=== PATIENT | male | born 1985 ===

== ENCOUNTER 2017-11-04 08:19 | Observation (INO) | payer OTHER ==
[2017-11-04] MEDS ORDERED: Sodium Chloride 0.9% 1,000 ML IV ONE ×2 (09:08→12:25)
--- NOTE | 2017-11-04 09:23 | C.PDOC ---
History Of Present Illness 32 yo male w/o significant PMHx come in for evaluation of epigastric pain developed since last nigh associated with nausea, multiple episodes of watery diarrhea #8 since alst night. Pt admits, " had some fish last night". Otherwise , pt denies fever, recent illness or abx use, sore throat, CP, SOB, dyspnea, diaphoresis, palpitation, vomiting, hematemesis, melena, melena, back pain, UTI sx. Ambulate to ED for evaluation, not in any apparent distress. Time Seen by Provider: 11/04/17 08:36 Chief Complaint (Nursing): Abdominal Pain History Per: Patient Past Medical History Reviewed: Historical Data, Nursing Documentation, Vital Signs Vital Signs: Last Vital Signs Temp 99.5 F 11/04/17 13:36 Pulse 114 H 11/04/17 13:36 Resp 18 11/04/17 13:36 BP 97/51 L 11/04/17 13:36 Pulse Ox 99 11/04/17 14:30 - Medical History PMH: No Chronic Diseases Surgical History: No Surg Hx Family History: States: No Known Family Hx - Social History Hx Tobacco Use: No Hx Alcohol Use: Yes Hx Substance Use: No Review Of Systems Except As Marked, All Systems Reviewed And Found Negative. Constitutional: Negative for: Fever, Chills Eyes: Negative for: Vision Change ENT: Negative for: Ear Discharge, Nose Discharge, Throat Pain, Throat Swelling Cardiovascular: Negative for: Chest Pain, Palpitations, Edema, Light Headedness Respiratory: Negative for: Cough, Shortness of Breath, Wheezing Gastrointestinal: Positive for: Nausea, Abdominal Pain, Diarrhea. Negative for : Vomiting, Melena, Hematochezia, Hematemesis Genitourinary: Negative for: Dysuria, Frequency Musculoskeletal: Negative for: Neck Pain, Back Pain Skin: Negative for: Rash Neurological: Negative for: Weakness, Numbness, Altered Mental Status, Headache , Dizziness Physical Exam - Physical Exam Appears: Well, Non-toxic, Other (in pain) Skin: Normal Color, Warm, Dry, No Rash Eye(s): bilateral: PERRL Nose: Normal Throat: Normal Neck: Normal Cardiovascular: Rhythm Regular Respiratory: Normal Breath Sounds Gastrointestinal/Abdominal: Normal Exam Back: Normal Inspection Extremity: Normal ROM ED Course And Treatment - Laboratory Results Result Diagrams: 11/04/17 09:39 11/04/17 09:39 Lab Interpretation: Abnormal ECG: Interpreted By Me, Viewed By Me ECG Rhythm: Sinus Rhythm O2 Sat by Pulse Oximetry: 99 Pulse Ox Interpretation: Normal - Radiology CXR: Interpreted by Me, Viewed By Me CXR Interpretation: Yes: No Acute Disease - CT Scan/US CT abd/pelvis Other Rad Studies (CT/US): Radiology Report Reviewed CT/US Interpretation: Imaging Account Manager : Aiden Flynn MD. Approver2 : Report Date : 11/04/2017 13:48:48. My Comment : . PROCEDURE: CT at pelvis dated 09/29/2017. HISTORY: Fever, LLQ pain. COMPARISON: No prior study available comparison. TECHNIQUE: Contiguous axial images of the abdomen and pelvis performed following intravenous injection of approximately 100 cc Visipaque 320 contrast material. Additional 2D sagittal and coronal reformats generated. Radiation dose: Total exam DLP = 545.66 mGy-cm. This CT exam was performed using one or more of the following dose reduction techniques: Automated exposure control, adjustment of the mA and/or kV according to patient size, and/ or use of iterative reconstruction technique. . FINDINGS: LOWER THORAX: Minor passive/ dependent type atelectasis both posterior lower lung zones. Lung lopez are otherwise clear. No effusion or basilar pneumothorax. Heart size within range of normal. No significant pericardial. There is a tiny hiatal hernia. LIVER: Liver is of mildly enlarged measuring nearly 20 cm CC dimension. Mild diffuse fatty hepatic infiltration. No obvious hepatic mass collection or calcification. Portal and splenic veins are opacified. GALLBLADDER AND BILE DUCTS: Gallbladder physiologically distended. No evidence of intraluminal gallbladder calculi. PANCREAS: Unremarkable. No mass. No ductal dilatation. SPLEEN: Unremarkable. No splenomegaly. ADRENALS: No adrenal lesions. KIDNEYS AND URETERS: Kidneys demonstrate relatively symmetric nephrograms. No evidence of nephrolithiasis or hydronephrosis. BLADDER: Urinary bladder is incompletely distended which presumably in part accounts thick-walled appearance. Muscular hypertrophy may. REPRODUCTIVE: Unremarkable. APPENDIX: Normal appearing appendix best seen on coronal image number [id number]. BOWEL: Evaluation of bowel is limited due to the lack of oral contrast. Stomach is incompletely distended which part accounts thick-walled appearance. Rule out gastritis. There are multiple distended fluid-filled loops of small bowel in the right mid and lower abdomen that exhibit mild enhancing wall thickening. Findings consistent with enteritis. In addition, there also appears be enhancing wall thickening of the cecum ascending colon as well as portions of the transverse descending colon consistent with a colitis which contains fluid as well. . Rule out diarrheal illness and/or inflammatory / infectious bowel disease. No evidence acute mechanical bowel obstruction. PERITONEUM: Unremarkable. No free or loculated fluid collection. No free air. LYMPH NODES: Multiple small nonspecific mesenteric lymph nodes are present possibly reactive however mesenteric adenitis not excluded. VASCULATURE: Unremarkable. No aortic aneurysm. BONES: No fracture or destructive lesion. OTHER FINDINGS: None. IMPRESSION: Findings most likely represent a nonspecific coloenteritis. Rule out diarrheal illness or inflammatory - infectious bowel disease. Multiple small nonspecific mesenteric lymph nodes possibly reactive however rule out mesenteric adenitis. Normal appendix. Mild hepatomegaly and mild fatty hepatic infiltration. Progress Note: On re-evaluation, pt still c/o diffuse abdominal cramping. noticed pt developed fever while in ED, tachycardic. CC 30 minutes. on re- eval at 13:50, fever impropved, remained tachy. PulseOx 99% rA. Neck: SUpple, (-) meningeal sign. ENT: no acute findings. Lungs: CTA B/L, BS equal B/L. CVS: (+)S1S2, reg. Abd: benign, (-) guarding, (-) rebound, (-) RLQ tenderness. Neurologicaly intact. Blood work review (+) abnormal, leukocytosis, bandemia. UA results review and appears normal. CT abd/pelvis review (+) acute enteritis. case discussed with Hospitalist and admission arranged for OBS. Results review and discussed with pt, admission recommend, pt agrees. Critical Care Time - Critical Care Note Total Time (in mins): 30 Documented critical care: time excludes all time spent performing seperately billable procedures. Disposition - Disposition Disposition: HOSPITALIZED Disposition Time: 14:30 Condition: STABLE Forms: [employer] (Armenian) - Clinical Impression Clinical Impression: Diarrhea, Abdominal pain, Fever, Enteritis
[2017-11-04] MEDS ORDERED: Sodium Chloride 0.9% 1,000 ML ONE (09:28)
[2017-11-04 09:44] LABS: BASO # 0.1 K/uL (0.0-0.2); BASO % 0.4 % (0.0-2.0); HEMOGLOBIN 15.5 g/dL (12.0-18.0); LYMPH % 6.1 % (20.0-40.0); MEAN CELL VOLUME 87.2 fL (80.0-94.0); MEAN CORPUSCULAR HEMOGLOBIN 29.8 pg (27.0-31.0); MEAN CORPUSCULAR HGB CONC 34.2 g/dL (33.0-37.0); MEAN PLATELET VOLUME 7.7 fL (7.2-11.7); MONO # 0.9 K/uL (0.0-0.8); MONO % 5.7 % (0.0-10.0); NEUT # 14.2 K/uL (1.8-7.0); NEUT % 87.8 % (50.0-75.0); NRBC % 0.1 % (0.0-2.0); PLATELET COUNT 238 K/uL (130-400); RBC 5.22 Mil/uL (4.40-5.90); RED CELL DISTRIBUTION WIDTH 14.2 % (11.5-14.5); WHITE BLOOD COUNT 16.2 K/uL (4.8-10.8)
[2017-11-04 09:48] LABS: URINE BILIRUBIN 1+ (NEGATIVE); URINE CLARITY Hazy (Clear); URINE COLOR DARK YELLOW (YELLOW); URINE GLUCOSE (UA) NEGATIVE (Normal)
[2017-11-04 09:50] LABS: PH,URINE 5.5 (5.0-8.0); URINE BLOOD 2+ (NEGATIVE); URINE PROTEIN 2+ mg/dL (NEGATIVE); URINE UROBILINOGEN NORMAL mg/dL (0.2-1.0)
[2017-11-04 09:51] LABS: URINE LEUKOCYTE ESTERASE NEGATIVE Leu/uL (Negative)
[2017-11-04 09:58] LABS: SQUAMOUS EPITHIAL 1 /hpf (0-5)
[2017-11-04 10:01] LABS: ALB/GLOB RATIO 1.1 (1.0-2.1); ALBUMIN 4.8 g/dL (3.5-5.0); ALT/SGPT 54 U/L (21-72); AST/SGOT 32 U/L (17-59); BLOOD UREA NITROGEN 17 mg/dL (9-20); CALCIUM 8.7 mg/dl (8.6-10.4); GFR AFRICAN-AMERICAN > 60; GFR NON-AFRICAN AMERICAN > 60; LIPASE 25 U/L (23-300)
[2017-11-04 10:58] LABS: LYMPHOCYTE 5 % (20-40); MONOCYTE 10 % (0-10); NEUTROPHIL 70 % (50-75); TOTAL CELLS COUNTED 100
[2017-11-04 11:00] LABS: PLATELET ESTIMATE NORMAL (NORMAL)
[2017-11-04] MEDS ORDERED: Piperacillin/Tazobact 3.375 gm 100 ML IV STA (12:04)
[2017-11-04] MEDS ORDERED: Piperacillin/Tazobact 3.375 gm 100 ML IVPB ONE (12:37)
[2017-11-04] MEDS ORDERED: Iodixanol 320 MG/ML 100 ML BOTTLE IV ONE (12:54)
[2017-11-04 13:01] LABS: VENOUS BLOOD GAS BASE EXCESS -4.5 mmol/L (0.0-2.0); VENOUS BLOOD GAS PCO2 30 mmHg (40-60); VENOUS BLOOD GAS PO2 65 mm/Hg (30-55); VENOUS BLOOD PH 7.41 (7.32-7.43)
[2017-11-04 13:24] LABS: BARBITURATES, UR NEGATIVE (NEGATIVE); BENZODIAZEPINES, UR NEGATIVE (NEGATIVE); OPIATES, UR NEGATIVE (NEGATIVE); PHENCYCLIDINE, UR NEGATIVE (NEGATIVE)
--- NOTE | 2017-11-04 13:50 | RAD ---
Chest x-ray two views History: Cough. Comparison: None available. Findings No focal infiltrate or effusion. Heart size within normal limits. Impression: No focal infiltrate or effusion.
--- NOTE | 2017-11-04 14:26 | CT ---
PROCEDURE: CT at pelvis dated 09/29/2017 HISTORY: Fever, LLQ pain COMPARISON: No prior study available comparison TECHNIQUE: Contiguous axial images of the abdomen and pelvis performed following intravenous injection of approximately 100 cc Visipaque 320 contrast material. Additional 2D sagittal and coronal reformats generated. Radiation dose: Total exam DLP = 545.66 mGy-cm. This CT exam was performed using one or more of the following dose reduction techniques: Automated exposure control, adjustment of the mA and/or kV according to patient size, and/or use of iterative reconstruction technique. . FINDINGS: LOWER THORAX: Minor passive/ dependent type atelectasis both posterior lower lung zones. Lung lopez are otherwise clear. No effusion or basilar pneumothorax. Heart size within range of normal. No significant pericardial. There is a tiny hiatal hernia. LIVER: Liver is of mildly enlarged measuring nearly 20 cm CC dimension. Mild diffuse fatty hepatic infiltration. No obvious hepatic mass collection or calcification. Portal and splenic veins are opacified. GALLBLADDER AND BILE DUCTS: Gallbladder physiologically distended. No evidence of intraluminal gallbladder calculi. PANCREAS: Unremarkable. No mass. No ductal dilatation. SPLEEN: Unremarkable. No splenomegaly. ADRENALS: No adrenal lesions KIDNEYS AND URETERS: Kidneys demonstrate relatively symmetric nephrograms. No evidence of nephrolithiasis or hydronephrosis. BLADDER: Urinary bladder is incompletely distended which presumably in part accounts thick-walled appearance. Muscular hypertrophy may. REPRODUCTIVE: Unremarkable. APPENDIX: Normal appearing appendix best seen on coronal image number [id number]. BOWEL: Evaluation of bowel is limited due to the lack of oral contrast. Stomach is incompletely distended which part accounts thick-walled appearance. Rule out gastritis. There are multiple distended fluid-filled loops of small bowel in the right mid and lower abdomen that exhibit mild enhancing wall thickening. Findings consistent with enteritis. In addition, there also appears be enhancing wall thickening of the cecum ascending colon as well as portions of the transverse descending colon consistent with a colitis which contains fluid as well. . Rule out diarrheal illness and/or inflammatory / infectious bowel disease. No evidence acute mechanical bowel obstruction. PERITONEUM: Unremarkable. No free or loculated fluid collection. No free air. LYMPH NODES: Multiple small nonspecific mesenteric lymph nodes are present possibly reactive however mesenteric adenitis not excluded. VASCULATURE: Unremarkable. No aortic aneurysm. BONES: No fracture or destructive lesion. OTHER FINDINGS: None. IMPRESSION: Findings most likely represent a nonspecific coloenteritis. Rule out diarrheal illness or inflammatory - infectious bowel disease. Multiple small nonspecific mesenteric lymph nodes possibly reactive however rule out mesenteric adenitis. Normal appendix. Mild hepatomegaly and mild fatty hepatic infiltration.
[2017-11-04 15:20] LABS: BANDS 15 % (0-2)
--- NOTE | 2017-11-04 15:44 | CP.PCM.HP ---
History of Present Illness - History of Present Illness History of Present Illness: CC: nausea, vomiting, and diarrhea HPI: Patient is a 32 year old male with no past medical history, who presents to the ED with complaints of nausea, vomiting, and diarrhea since yesterday at 5pm. He had fish for lunch, and shortly after that, he started to vomit and diarrhea. He reports his diarrhea and vomit is watery, non-bloody and constant. He also admits to having a fever, 100.3-100.4F. He tried taking cheryl seltzer but had no relief. Patient states that others who ate the fish have no symptoms. Patient denies recent antibiotic use and denies hospitalizations. Patient denies chest pain, abdominal pain, headaches, dizziness, leg pain/ swelling, and dysuria. PMD: Dr. Amezquita PMHx: denies SurgHx: denies FamHx: "DM runs in the family", otherwise denies SocHx: denies tobacco and drug use; admits to social drinking Allergies: NKDA Medication: none Present on Admission - Present on Admission Any Indicators Present on Admission: No Review of Systems - Constitutional Constitutional: Chills, Fever. absent: Headache, Weakness - EENT Ears: absent: Dizziness - Cardiovascular Cardiovascular: absent: Chest Pain, Dyspnea, Leg Edema, Palpitations - Respiratory Respiratory: absent: Cough, Dyspnea - Gastrointestinal Gastrointestinal: Diarrhea, Nausea, Vomiting. absent: Abdominal Pain, Constipation, Hematemesis, Hematochezia, Melena - Genitourinary Genitourinary: absent: Dysuria - Integumentary Integumentary: absent: Rash - Neurological Neurological: absent: Dizziness, Headaches Past Patient History - Past Social History Smoking Status: Never Smoked - PSYCHIATRIC Hx Substance Use: No - SURGICAL HISTORY Hx Surgeries: No Meds Allergies/Adverse Reactions: Allergies Allergy/AdvReac Type Severity Reaction Status Date / Time No Known Allergies Allergy Verified 11/04/ 08:25 Physical Exam - Constitutional Appears: No Acute Distress - Head Exam Head Exam: ATRAUMATIC, NORMAL INSPECTION - Eye Exam Eye Exam: EOMI, Normal appearance, PERRL - ENT Exam ENT Exam: Mucous Membranes Dry - Neck Exam Neck exam: Positive for: Normal Inspection - Respiratory Exam Respiratory Exam: Clear to Auscultation Bilateral, NORMAL BREATHING PATTERN. absent: Rales, Rhonchi, Wheezes, Respiratory Distress - Cardiovascular Exam Cardiovascular Exam: Tachycardia, REGULAR RHYTHM, +S1, +S2 - GI/Abdominal Exam GI & Abdominal Exam: Normal Bowel Sounds, Soft. absent: Distended, Firm, Guarding, Mass, Tenderness - Extremities Exam Extremities exam: Positive for: normal inspection, pedal pulses present. Negative for: pedal edema, tenderness - Neurological Exam Neurological exam: Alert, Oriented x3 - Psychiatric Exam Psychiatric exam: Normal Affect, Normal Mood - Skin Skin Exam: Dry, Intact, Normal Color, Warm Results - Vital Signs Recent Vital Signs: Last Vital Signs Temp 99.5 F 11/04/17 13:36 Pulse 114 H 11/04/17 13:36 Resp 18 11/04/17 13:36 BP 97/51 L 11/04/17 13:36 Pulse Ox 99 11/04/17 14:58 - Labs Result Diagrams: 11/04/17 09:39 11/04/17 09:39 Labs: Laboratory Results - last 24 hr 11/04/17 11/04/17 11/04/17 09:39 09:39 09:39 WBC 16.2 H RBC 5.22 Hgb 15.5 Hct 45.5 MCV 87.2 MCH 29.8 MCHC 34.2 RDW 14.2 Plt Count 238 MPV 7.7 Neut % (Auto) 87.8 H Lymph % (Auto) 6.1 L [place] % (Auto) 5.7 Eos % (Auto) 0.0 Baso % (Auto) 0.4 Neut # (Auto) 14.2 H Lymph # (Auto) 1.0 [place] # (Auto) 0.9 H Eos # (Auto) 0.0 Baso # (Auto) 0.1 Neutrophils % (Manual) 70 Band Neutrophils % 15 H* Lymphocytes % (Manual) 5 L Monocytes % (Manual) 10 Platelet Estimate Normal RBC Morphology Normal pO2 VBG pH VBG pCO2 VBG HCO3 VBG Total CO2 VBG O2 Sat (Calc) VBG Base Excess VBG Potassium Glucose Lactate Sodium 138 Potassium 3.7 Chloride 99 Carbon Dioxide 21 L Anion Gap 22 H BUN 17 Creatinine 0.8 Est GFR ( Amer) > 60 Est GFR (Non-Af Amer) > 60 Random Glucose 136 H Calcium 8.7 Total Bilirubin 1.5 H AST 32 ALT 54 Alkaline Phosphatase 126 Total Protein 9.0 H Albumin 4.8 Globulin 4.2 H Albumin/Globulin Ratio 1.1 Lipase 25 Venous Blood Potassium Urine Color Dark yellow Urine Clarity Hazy Urine pH 5.5 Ur Specific [place] > 1.030 H Urine Protein 2+ H Urine Glucose (UA) Negative Urine Ketones Negative Urine Blood 2+ H Urine Nitrate Negative Urine Bilirubin 1+ H Urine Urobilinogen Normal Ur Leukocyte Esterase Negative Urine WBC (Auto) 1 Urine RBC (Auto) 16 H Ur Squamous Epith Cells 1 Urine Opiates Screen Urine Methadone Screen Ur Barbiturates Screen Ur Phencyclidine Scrn Ur Amphetamines Screen U Benzodiazepines Scrn U Oth Cocaine Metabols U Cannabinoids Screen 11/04/17 11/04/17 12:50 12:56 WBC RBC Hgb Hct MCV MCH MCHC RDW Plt Count MPV Neut % (Auto) Lymph % (Auto) [place] % (Auto) Eos % (Auto) Baso % (Auto) Neut # (Auto) Lymph # (Auto) [place] # (Auto) Eos # (Auto) Baso # (Auto) Neutrophils % (Manual) Band Neutrophils % Lymphocytes % (Manual) Monocytes % (Manual) Platelet Estimate RBC Morphology pO2 65 H VBG pH 7.41 VBG pCO2 30 L VBG HCO3 21.3 VBG Total CO2 19.9 L VBG O2 Sat (Calc) 93.8 H VBG Base Excess -4.5 L VBG Potassium 3.7 Glucose 104 Lactate 1.7 Sodium 134.0 Potassium Chloride 106.0 Carbon Dioxide Anion Gap BUN Creatinine Est GFR ( Amer) Est GFR (Non-Af Amer) Random Glucose Calcium Total Bilirubin AST ALT Alkaline Phosphatase Total Protein Albumin Globulin Albumin/Globulin Ratio Lipase Venous Blood Potassium 3.7 Urine Color Urine Clarity Urine pH Ur Specific [place] Urine Protein Urine Glucose (UA) Urine Ketones Urine Blood Urine Nitrate Urine Bilirubin Urine Urobilinogen Ur Leukocyte Esterase Urine WBC (Auto) Urine RBC (Auto) Ur Squamous Epith Cells Urine Opiates Screen Negative Urine Methadone Screen Negative Ur Barbiturates Screen Negative Ur Phencyclidine Scrn Negative Ur Amphetamines Screen Negative U Benzodiazepines Scrn Negative U Oth Cocaine Metabols Negative U Cannabinoids Screen Negative Assessment & Plan (1) Sepsis Assessment and Plan: Febrile + Leukocytosis + Tachycardia; Source: enteritis Bandemia EKG: [id number]@118bpm CXR: negative Lactate: 1.7 Lactate #2: Blood cx: f/u Stool cx: f/u Urine cx: f/u Continue to monitor AM labs and vitals Medication/Management: * Cipro 400mg IV Q12 * Flagyl 500mg IV Q8 * LR@100mls/hr * Tylenol 650mg PO Q6 prn for fever Status: Acute (2) Enterocolitis Assessment and Plan: [place] illness vs viral etiology Abdo/pelv CT: coloenteritis; multiple small nonspecific mesenteric lymph nodes, possibly reactive; mild hepatomegaly; mild fatty hepatic infiltrate Blood cx: f/u Stool cx: f/u Urine cx: f/u Osmolality feces: f/u Ova & Parasite: f/u Fecal leukocytes: f/u Stool occult: f/u C.Diff: f/u Continue to monitor AM labs and vitals Medication/Management: * Cipro 400mg IV Q12 * Flagyl 500mg IV Q8 * LR@100mls/hr * Tylenol 650mg PO Q6 prn for fever * Zofran 4mg IV Q6 prn for n/v * NPO except medications * May advance diet to CLD if patient can tolerate/stops vomiting/requests to eat. Status: Acute (3) Prophylactic measure Assessment and Plan: DVT: SCDs; chemical anticoagulation not indicated GI: no indicated Status: Acute
[2017-11-04] MEDS: Lactated Ringer's 1,000 ML IV SCH (16:58)
[2017-11-04 17:44] VITALS: RESP 20
[2017-11-04] MEDS: Ciprofloxacin 400mg/200ml D5W 400 MG/200 ML BAG IVPB SCH (18:30)
[2017-11-04] MEDS: metroNIDAZOLE IV 500 mg/100 ml 500 MG/100 ML BAG IVPB SCH (20:50)
[2017-11-05] MEDS: Lactated Ringer's 1,000 ML IV SCH ×3 (01:15→20:33)
[2017-11-05] MEDS: metroNIDAZOLE IV 500 mg/100 ml 500 MG/100 ML BAG IVPB SCH ×3 (05:02→20:27)
[2017-11-05] MEDS: Ciprofloxacin 400mg/200ml D5W 400 MG/200 ML BAG IVPB SCH ×2 (06:05→17:30)
--- NOTE | 2017-11-05 07:46 | CP.PCM.PN ---
<Helena Reyes V - Last Filed: 11/05/17 17:26> Objective - Vital Signs/Intake and Output Vital Signs (last 24 hours): Temp Pulse Resp BP Pulse Ox 98.2 F 85 20 96/57 L 96 11/05/17 07:04 11/05/17 07:04 11/05/17 07:04 11/05/17 07:04 11/05/17 07:04 Intake and Output: 11/05/17 11/05/17 06:59 18:59 Intake Total 1600 Balance 1600 - Medications Medications: Current Medications Acetaminophen (Tylenol 325mg Tab) 650 mg PO Q6 PRN PRN Reason: Fever >100.4 F Last Admin: 11/05/17 05:05 Dose: 650 mg Lactated Ringer's (Lactated Ringer's) 1,000 mls @ 100 mls/hr IV .Q10H [facility]NESTO Last Admin: 11/05/17 10:44 Dose: 100 mls/hr Ciprofloxacin (Cipro 400mg/200ml Dsw) 400 mg in 200 mls @ 133 mls/hr IVPB Q12H HERNESTO PRN Reason: Protocol Last Admin: 11/05/17 06:05 Dose: 133 mls/hr Metronidazole (Flagyl) 500 mg in 100 mls @ 100 mls/hr IVPB Q8H HERNESTO PRN Reason: Protocol Last Admin: 11/05/17 13:57 Dose: 100 mls/hr Ondansetron HCl (Zofran Inj) 4 mg IVP Q6 PRN PRN Reason: Nausea/Vomiting Last Admin: 11/04/17 20:49 Dose: 4 mg Pneumococcal Polyvalent Vaccine (Pneumovax 23 Vaccine) 0.5 ml IM .ONCE ONE Stop: 11/07/17 10:01 - Labs Labs: 11/05/17 07:31 11/05/17 07:31 Attending/Attestation - Attestation I have personally seen and examined this patient.: Yes I have fully participated in the care of the patient.: Yes I have reviewed all pertinent clinical information, including history, physical exam and plan: Yes Notes (Text): Patient seen, examined, case discussed with medical office technology instructor. Patient seen this morning with the resident. Patient reports 2 days ago he had went to a restaurant in [place]. He reports he had ceviche. Afterwards he reported he had lots of diarrhea. Today he reports stool is changed to little bit softer consistency and has had about 2 episodes today as of 11 AM this morning. Patient reports he is afraid to eat however I have encouraged him to try at least clear liquid diet. Patient's MAXIMUM TEMPERATURE 102.1 as of yesterday. Patient has not had a temperature since. Patient's white count has normalized. Electrolytes repleted. He is positive for stool leukocytes and negative for C. difficile. Blood cultures came a week later this evening showing no growth after 24 hours 2. We are awaiting ova and parasite and stool culture and urine culture. We are waiting patient remains afebrile for at least 24 hours and if these results come back for possible discharge planning for tomorrow. (1) SIRS Assessment and Plan: * Febrile + Leukocytosis + Tachycardia; Source: enteritis on admission Bandemia * EKG: NSR@118bpm * CXR: negative * Lactate: 1.7 * Lactate: 1.2 * Blood cx: No growth after 24hours X2 * Stool cx: f/u * Urine cx: f/u Medication/Management: * Cipro 400mg IV Q12H * Flagyl 500mg IV Q8H * LR@100mls/hr * Tylenol 650mg PO Q6 prn for fever Status: Acute (2) Enterocolitis Assessment and Plan: * Food bourne illness vs viral etiology * Abdo/pelv CT: coloenteritis; multiple small nonspecific mesenteric lymph nodes , possibly reactive; mild hepatomegaly; mild fatty hepatic infiltrate * Blood cx: f/u * Lactate: 1.7 * Lactate: 1.2 * Blood cx: No growth after 24hours X2 * Stool cx: f/u * Urine cx: f/u * C.Diff: f/u Continue to monitor AM labs and vitals Medication/Management: * Cipro 400mg IV Q12 * Flagyl 500mg IV Q8 * LR@100mls/hr * Tylenol 650mg PO Q6 prn for fever * Zofran 4mg IV Q6 prn for n/v * NPO except medications * May advance diet to CLD if patient can tolerate/stops vomiting/requests to eat. Status: Acute (3) Prophylactic measure Assessment and Plan: * DVT: SCDs; chemical anticoagulation not indicated * GI: no indicated Status: Acute <Melvin,Jaspal R - Last Filed: 11/05/17 17:36> Subjective - Date & Time of Evaluation Date of Evaluation: 11/05/17 Time of Evaluation: 07:40 - Subjective Subjective: PGY-[address] Reyes. No acute events noted overnight. Patient had 3 episodes of diarrhea this morning which was more formed compared to yesterday. Abdominal pain still present but better today. Denies fevers. Denies chest pain. Believes he ate some bad cerviche which causes his infection. Objective - Vital Signs/Intake and Output Vital Signs (last 24 hours): Temp Pulse Resp BP Pulse Ox 99.1 F 103 H 20 102/65 95 11/05/17 00:00 11/05/17 00:00 11/05/17 00:00 11/05/17 00:00 11/05/17 00:00 Intake and Output: 11/05/17 11/05/17 06:59 18:59 Intake Total 1600 Balance 1600 - Medications Medications: Current Medications Acetaminophen (Tylenol 325mg Tab) 650 mg PO Q6 PRN PRN Reason: Fever >100.4 F Last Admin: 11/05/17 05:05 Dose: 650 mg Lactated Ringer's (Lactated Ringer's) 1,000 mls @ 100 mls/hr IV .Q10H [facility] Last Admin: 11/05/17 01:15 Dose: Not Given Ciprofloxacin (Cipro 400mg/200ml Dsw) 400 mg in 200 mls @ 133 mls/hr IVPB Q12H [facility] PRN Reason: Protocol Last Admin: 11/05/17 06:05 Dose: 133 mls/hr Metronidazole (Flagyl) 500 mg in 100 mls @ 100 mls/hr IVPB Q8H [facility] PRN Reason: Protocol Last Admin: 11/05/17 05:02 Dose: 100 mls/hr Ondansetron HCl (Zofran Inj) 4 mg IVP Q6 PRN PRN Reason: Nausea/Vomiting Last Admin: 11/04/17 20:49 Dose: 4 mg Pneumococcal Polyvalent Vaccine (Pneumovax 23 Vaccine) 0.5 ml IM .ONCE ONE Stop: 11/07/17 10:01 - Labs Labs: 11/04/17 09:39 11/04/17 09:39 - Additional Findings Additional findings: - Constitutional Appears: No Acute Distress - Head Exam Head Exam: ATRAUMATIC, NORMAL INSPECTION - Eye Exam Eye Exam: EOMI, Normal appearance, PERRL - ENT Exam ENT Exam: Mucous Membranes Dry - Neck Exam Neck exam: Positive for: Normal Inspection - Respiratory Exam Respiratory Exam: Clear to Auscultation Bilateral, NORMAL BREATHING PATTERN. absent: Rales, Rhonchi, Wheezes, Respiratory Distress - Cardiovascular Exam Cardiovascular Exam: Tachycardia, REGULAR RHYTHM, +S1, +S2 - GI/Abdominal Exam GI & Abdominal Exam: Normal Bowel Sounds, Soft. absent: Distended, Firm, Guarding, Mass, Tenderness - Extremities Exam Extremities exam: Positive for: normal inspection, pedal pulses present. Negative for: pedal edema, tenderness - Neurological Exam Neurological exam: Alert, Oriented x3 - Psychiatric Exam Psychiatric exam: Normal Affect, Normal Mood - Skin Skin Exam: Dry, Intact, Normal Color, Warm Assessment and Plan - Assessment and Plan (Free Text) Assessment: (1) SIRS Assessment and Plan: * Febrile + Leukocytosis + Tachycardia; Source: enteritis on admission Bandemia * EKG: NSR@118bpm * CXR: negative * Lactate: 1.7 * Lactate: 1.2 * Blood cx: No growth after 24hours X2 * Stool cx: f/u * Urine cx: f/u Medication/Management: * Cipro 400mg IV Q12H * Flagyl 500mg IV Q8H * LR@100mls/hr * Tylenol 650mg PO Q6 prn for fever Status: Acute (2) Enterocolitis Assessment and Plan: * Food bourne illness vs viral etiology * Abdo/pelv CT: coloenteritis; multiple small nonspecific mesenteric lymph nodes , possibly reactive; mild hepatomegaly; mild fatty hepatic infiltrate * Blood cx: f/u * Lactate: 1.7 * Lactate: 1.2 * Blood cx: No growth after 24hours X2 * Stool cx: f/u * Urine cx: f/u * C.Diff: f/u Continue to monitor AM labs and vitals Medication/Management: * Cipro 400mg IV Q12 * Flagyl 500mg IV Q8 * LR@100mls/hr * Tylenol 650mg PO Q6 prn for fever * Zofran 4mg IV Q6 prn for n/v * NPO except medications * May advance diet to CLD if patient can tolerate/stops vomiting/requests to eat. Status: Acute (3) Prophylactic measure Assessment and Plan: * DVT: SCDs; chemical anticoagulation not indicated * GI: no indicated Status: Acute
[2017-11-05 07:47] LABS: BASO % 0.5 % (0.0-2.0); HEMOGLOBIN 14.1 g/dL (12.0-18.0); LYMPH % 10.7 % (20.0-40.0); MEAN CELL VOLUME 87.5 fL (80.0-94.0); MEAN CORPUSCULAR HEMOGLOBIN 30.4 pg (27.0-31.0); MEAN CORPUSCULAR HGB CONC 34.8 g/dL (33.0-37.0); MONO # 0.6 K/uL (0.0-0.8); MONO % 6.1 % (0.0-10.0); NEUT # 7.5 K/uL (1.8-7.0); NEUT % 82.7 % (50.0-75.0); NRBC % 0.1 % (0.0-2.0); RBC 4.64 Mil/uL (4.40-5.90); RED CELL DISTRIBUTION WIDTH 13.9 % (11.5-14.5); WHITE BLOOD COUNT 9.1 K/uL (4.8-10.8)
[2017-11-05 08:12] LABS: ALB/GLOB RATIO 1.1 (1.0-2.1); ALBUMIN 3.8 g/dL (3.5-5.0); ALT/SGPT 55 U/L (21-72); AST/SGOT 41 U/L (17-59); BLOOD UREA NITROGEN 11 mg/dL (9-20); CALCIUM 8.3 mg/dl (8.6-10.4); GFR AFRICAN-AMERICAN > 60; GFR NON-AFRICAN AMERICAN > 60
--- NOTE | 2017-11-05 19:32 | CARD ---
APPROVED REPORT EKG Measurement Heart [id number] <Conclusion> Sinus tachycardia Possible Left atrial enlargement Borderline ECG
[2017-11-06] MEDS: Lactated Ringer's 1,000 ML IV SCH ×2 (03:00→07:54)
[2017-11-06] MEDS: metroNIDAZOLE IV 500 mg/100 ml 500 MG/100 ML BAG IVPB SCH ×2 (04:05→12:36)
[2017-11-06] MEDS: Ciprofloxacin 400mg/200ml D5W 400 MG/200 ML BAG IVPB SCH (05:26)
[2017-11-06] MEDS ORDERED: Potassium Chloride 20 mEq ER Tab PO ONE (07:15)
[2017-11-06 07:21] LABS: BASO % 0.6 % (0.0-2.0); EOS # 0.1 K/uL (0.0-0.7); EOS % 1.7 % (0.0-4.0); HEMOGLOBIN 14.3 g/dL (12.0-18.0); LYMPH # 1.7 K/uL (1.0-4.3); LYMPH % 30.1 % (20.0-40.0); MEAN CELL VOLUME 87.5 fL (80.0-94.0); MEAN CORPUSCULAR HEMOGLOBIN 29.6 pg (27.0-31.0); MEAN CORPUSCULAR HGB CONC 33.9 g/dL (33.0-37.0); MEAN PLATELET VOLUME 8.3 fL (7.2-11.7); MONO # 0.8 K/uL (0.0-0.8); MONO % 13.5 % (0.0-10.0); NEUT # 3.1 K/uL (1.8-7.0); NEUT % 54.1 % (50.0-75.0); NRBC % 0.2 % (0.0-2.0); RBC 4.81 Mil/uL (4.40-5.90); RED CELL DISTRIBUTION WIDTH 13.9 % (11.5-14.5); WHITE BLOOD COUNT 5.8 K/uL (4.8-10.8)
[2017-11-06 07:26] LABS: ALB/GLOB RATIO 1.1 (1.0-2.1); ALBUMIN 3.8 g/dL (3.5-5.0); ALT/SGPT 56 U/L (21-72); AST/SGOT 36 U/L (17-59); BLOOD UREA NITROGEN 10 mg/dL (9-20); CALCIUM 8.7 mg/dl (8.6-10.4); GFR AFRICAN-AMERICAN > 60; GFR NON-AFRICAN AMERICAN > 60
[2017-11-06 09:37] VITALS: BP 99/68; PULSE 77; TEMP 98.1; O2SAT 96
--- NOTE | 2017-11-06 12:16 | CP.PCM.DIS ---
Provider - Provider Date of Admission: 11/04/17 14:30 Attending physician: Jere Pruitt DO Primary care physician: Dr. Amezquita Time Spent in preparation of Discharge (in minutes): 40 Diagnosis - Discharge Diagnosis (1) Enteritis Status: Acute Comment: Resolving (2) Sepsis Status: Resolved Hospital Course - Lab Results Lab Results: Micro Results 11/04/17 16:56 Stool Stool Culture - Final NO SALMONELLA, SHIGELLA OR CAMPYLOBACTER ISOLATED. 11/04/17 12:50 Urine,Clean Catch Urine Culture - Final No Growth (<1,000 CFU/ML) 11/04/17 12:00 Blood Blood Culture - Preliminary NO GROWTH AFTER 24 HOURS 11/04/17 12:35 Blood Blood Culture - Preliminary NO GROWTH AFTER 24 HOURS Most Recent Lab Values WBC 5.8 K/uL (4.8-10.8) 11/06/17 07:01 RBC 4.81 Mil/uL (4.40-5.90) 11/06/17 07:01 Hgb 14.3 g/dL (12.0-18.0) 11/06/17 07:01 Hct 42.1 % (35.0-51.0) 11/06/17 07:01 MCV 87.5 fL (80.0-94.0) 11/06/17 07:01 MCH 29.6 pg (27.0-31.0) 11/06/17 07:01 MCHC 33.9 g/dL (33.0-37.0) 11/06/17 07:01 RDW 13.9 % (11.5-14.5) 11/06/17 07:01 Plt Count 205 K/uL (130-400) 11/06/17 07:01 MPV 8.3 fL (7.2-11.7) 11/06/17 07:01 Neut % (Auto) 54.1 % (50.0-75.0) 11/06/17 07:01 Lymph % (Auto) 30.1 % (20.0-40.0) 11/06/17 07:01 Glynn % (Auto) 13.5 % (0.0-10.0) H 11/06/17 07:01 Eos % (Auto) 1.7 % (0.0-4.0) 11/06/17 07:01 Baso % (Auto) 0.6 % (0.0-2.0) 11/06/17 07:01 Neut # (Auto) 3.1 K/uL (1.8-7.0) 11/06/17 07:01 Lymph # (Auto) 1.7 K/uL (1.0-4.3) 11/06/17 07:01 Glynn # (Auto) 0.8 K/uL (0.0-0.8) 11/06/17 07:01 Eos # (Auto) 0.1 K/uL (0.0-0.7) 11/06/17 07:01 Baso # (Auto) 0.0 K/uL (0.0-0.2) 11/06/17 07:01 Neutrophils % (Manual) 70 % (50-75) 11/04/17 09:39 Band Neutrophils % 15 % (0-2) H* 11/04/17 09:39 Lymphocytes % (Manual) 5 % (20-40) L 11/04/17 09:39 Monocytes % (Manual) 10 % (0-10) 11/04/17 09:39 Platelet Estimate Normal (NORMAL) 11/04/17 09:39 RBC Morphology Normal 11/04/17 09:39 pO2 65 mm/Hg (30-55) H 11/04/17 12:56 VBG pH 7.41 (7.32-7.43) 11/04/17 12:56 VBG pCO2 30 mmHg (40-60) L 11/04/17 12:56 VBG HCO3 21.3 mmol/L 11/04/17 12:56 VBG Total CO2 19.9 mmol/L (22-28) L 11/04/17 12:56 VBG O2 Sat (Calc) 93.8 % (40-65) H 11/04/17 12:56 VBG Base Excess -4.5 mmol/L (0.0-2.0) L 11/04/17 12:56 VBG Potassium 3.7 mmol/L (3.6-5.2) 11/04/17 12:56 Sodium 134.0 mmol/l (132-148) 11/04/17 12:56 Chloride 106.0 mmol/L (98-107) 11/04/17 12:56 Glucose 104 mg/dl (75-110) 11/04/17 12:56 Lactate 1.7 mmol/L (0.7-2.1) 11/04/17 12:56 Sodium 138 mmol/L (132-148) 11/06/17 07:01 Potassium 3.8 mmol/L (3.6-5.2) 11/06/17 07:01 Chloride 103 mmol/L (98-107) 11/06/17 07:01 Carbon Dioxide 23 mmol/L (22-30) 11/06/17 07:01 Anion Gap 16 (10-20) 11/06/17 07:01 BUN 10 mg/dL (9-20) 11/06/17 07:01 Creatinine 0.8 mg/dL (0.8-1.5) 11/06/17 07:01 Est GFR ( Amer) > 60 11/06/17 07:01 Est GFR (Non-Af Amer) > 60 11/06/17 07:01 Random Glucose 118 mg/dL (75-110) H 11/06/17 07:01 Lactic Acid 1.2 mmol/L (0.7-2.1) 11/04/17 18:49 Calcium 8.7 mg/dl (8.6-10.4) 11/06/17 07:01 Phosphorus 2.6 mg/dL (2.5-4.5) 11/06/17 07:01 Magnesium 1.9 mg/dL (1.6-2.3) 11/06/17 07:01 Total Bilirubin 0.7 mg/dL (0.2-1.3) 11/06/17 07:01 AST 36 U/L (17-59) 11/06/17 07:01 ALT 56 U/L (21-72) 11/06/17 07:01 Alkaline Phosphatase 84 U/L (38-126) 11/06/17 07:01 Total Protein 7.1 g/dL (6.3-8.3) 11/06/17 07:01 Albumin 3.8 g/dL (3.5-5.0) 11/06/17 07:01 Globulin 3.4 gm/dL (2.2-3.9) 11/06/17 07:01 Albumin/Globulin Ratio 1.1 (1.0-2.1) 11/06/17 07:01 Lipase 25 U/L (23-300) 11/04/17 09:39 Venous Blood Potassium 3.7 mmol/L (3.6-5.2) 11/04/17 12:56 Urine Color Dark yellow (YELLOW) 11/04/17 09:39 Urine Clarity Hazy (Clear) 11/04/17 09:39 Urine pH 5.5 (5.0-8.0) 11/04/17 09:39 Ur Specific [place] > 1.030 (1.003-1.030) H 11/04/17 09:39 Urine Protein 2+ mg/dL (NEGATIVE) H 11/04/17 09:39 Urine Glucose (UA) Negative mg/dL (Normal) 11/04/17 09:39 Urine Ketones Negative mg/dL (NEGATIVE) 11/04/17 09:39 Urine Blood 2+ (NEGATIVE) H 11/04/17 09:39 Urine Nitrate Negative (NEGATIVE) 11/04/17 09:39 Urine Bilirubin 1+ (NEGATIVE) H 11/04/17 09:39 Urine Urobilinogen Normal mg/dL (0.2-1.0) 11/04/17 09:39 Ur Leukocyte Esterase Negative Ethan/uL (Negative) 11/04/17 09:39 Urine WBC (Auto) 1 /hpf (0-5) 11/04/17 09:39 Urine RBC (Auto) 16 /hpf (0-3) H 11/04/17 09:39 Ur Squamous Epith Cells 1 /hpf (0-5) 11/04/17 09:39 Stool Occult Blood Positive (NEGATIVE) H 11/05/17 21:38 Stool Leukocytes, Qual Positive (NEGATIVE) H 11/04/17 16:56 Urine Opiates Screen Negative (NEGATIVE) 11/04/17 12:50 Urine Methadone Screen Negative (NEGATIVE) 11/04/17 12:50 Ur Barbiturates Screen Negative (NEGATIVE) 11/04/17 12:50 Ur Phencyclidine Scrn Negative (NEGATIVE) 11/04/17 12:50 Ur Amphetamines Screen Negative (NEGATIVE) 11/04/17 12:50 U Benzodiazepines Scrn Negative (NEGATIVE) 11/04/17 12:50 U Oth Cocaine Metabols Negative (NEGATIVE) 11/04/17 12:50 U Cannabinoids Screen Negative (NEGATIVE) 11/04/17 12:50 C. difficile Ag & Toxin Negative (NEGATIVE) 11/04/17 16:56 - Hospital Course Hospital Course: "Patient is a 32 year old male with no past medical history, who presents to the ED with complaints of nausea, vomiting, and diarrhea since yesterday at 5pm. He had fish for lunch, and shortly after that, he started to vomit and diarrhea. He reports his diarrhea and vomit is watery, non-bloody and constant. He also admits to having a fever, 100.3-100.4F. He tried taking cheryl seltzer but had no relief. Patient states that others who ate the fish have no symptoms. Patient denies recent antibiotic use and denies hospitalizations. Patient denies chest pain, abdominal pain, headaches, dizziness, leg pain/ swelling, and dysuria." Patient admitted for enteritis with SIRS criteria. Patient started on Cipro, Flagyl, LR, and Tylenol. Abd/pelvis CT showed coloenteritis; multiple small nonspecific mesenteric lymph nodes, possibly reactive; mild hepatomegaly; mild fatty hepatic infiltrate. Blood culture, urine culture, stool culture, and c dif were negative. Patient was afebrile after admission. Patient was NPO and then advanced to CLD. Upon discharge patient was tolerating diet. Patient had 2 soft bowel movements upon day of discharge. Patient was feeling much better. This is a summary of the patient's hospital course, please see chart for full details. Discharge Exam - Head Exam Head Exam: ATRAUMATIC, NORMAL INSPECTION, NORMOCEPHALIC - Eye Exam Eye Exam: EOMI, Normal appearance - ENT Exam ENT Exam: Mucous Membranes Moist - Neck Exam Neck exam: Full Rom - Respiratory Exam Respiratory Exam: Clear to PA & Lateral, NORMAL BREATHING PATTERN, UNREMARKABLE. absent: Rales, Rhonchi, Wheezes, Respiratory Distress, Stridor - Cardiovascular Exam Cardiovascular Exam: REGULAR RHYTHM, RRR, +S1, +S2 - GI/Abdominal Exam GI & Abdominal Exam: Normal Bowel Sounds, Soft. absent: Tenderness - Extremities Exam Extremities exam: normal inspection - Neurological Exam Neurological exam: Alert, Oriented x3 - Psychiatric Exam Psychiatric exam: Normal Affect, Normal Mood - Skin Skin Exam: Intact, Normal Color, Warm Discharge Plan - Follow Up Plan Condition: FAIR Disposition: HOME/ ROUTINE Additional Instructions: Patient stable for discharge as per Dr. Keita. Patient to increase his fluid intake. Patient to eat a bland diet- bread, bananas, rice. Patient to not eat out at restaurants for the next two weeks. Patient to wash his hands often to prevent re-infection. Patient should follow up with his primary doctor within 7-10 days. Patient to return to Emergency Room if diarrhea increase, if he has fevers, nausea, or vomiting. Paciente para aumentar rodriguez ingesta de lquidos. Paciente para comer rito dieta blanda: chastity caceres, claire. Paciente no comer en restaurantes patito las pr ximas dos semanas. Paciente para lavarse las joyce a menudo para prevenir la reinfeccin. El paciente debe hacer un seguimiento con rodriguez mdico dentro de 7-10 marmolejo. El paciente debe regresar a la sridhar de emergencias si aumenta la diarrea, si tiene fiebre, nuseas o vmitos.
[2017-11-06] MEDS ORDERED: Pneumococcal 23-Valent Vaccine IM ONE (13:00)
== END 2017-11-06 13:53 | disposition home or self-care (01) ==
LOC: C.ER 08:19 → C.9E 14:30 → C.3T 16:36
PROVIDERS: ADMIT Hospitalist; ATTEND Hospitalist
DX: A41.9 Sepsis, unspecified organism (principal); K52.9 Noninfective gastroenteritis and colitis, unspecified
CPT/HCPCS: 36415; 71046; 74177; 80053; 80324; 80345; 80346; 80349; 80353; 80358; 80361; 81001; 82803; 83605; 83690; 83735; 83992; 84100; 84999; 85025; 87040; 87045; 87086; 87177; 87209; 87230; 89055; 93005; 96360; 96374; 99285; C9113; G0328; G0378; J0744; J2405; J2543; J3480; J7030; J7120; Q9967

== ENCOUNTER 2018-04-02 17:33 | Emergency (ER) | payer OTHER ==
[2018-04-02 18:20] VITALS: BP 115/79; PULSE 72; RESP 16; TEMP 97.8; O2SAT 97
--- NOTE | 2018-04-02 19:09 | C.PDOC ---
History Of Present Illness 32 year old male presents to the ED for evaluation of right ear pain for 5 days. Patient reports he has not been evaluated by PMD Dr. Mcgee for current symptoms. Denies fever, trauma, headache, dizziness, ear discharge, URI symptoms, medication for the pain, or any other associated symptoms. Time Seen by Provider: 04/02/18 17:59 Chief Complaint (Nursing): ENT Problem History Per: Patient History/Exam Limitations: None Onset/Duration Of Symptoms: Days Current Symptoms Are (Timing): Still Present Past Medical History Reviewed: Historical Data, Nursing Documentation, Vital Signs Vital Signs: Last Vital Signs Temp 97.8 F 04/02/18 18:20 Pulse 72 04/02/18 18:20 Resp 16 04/02/18 18:20 BP 115/79 04/02/18 18:20 Pulse Ox 97 04/02/18 18:20 Family History: States: Unknown Family Hx - Social History Hx Tobacco Use: No Hx Alcohol Use: Yes Hx Substance Use: No - Immunization History Hx Tetanus Toxoid Vaccination: No Hx Influenza Vaccination: No Hx Pneumococcal Vaccination: No Review Of Systems Constitutional: Negative for: Fever ENT: Positive for: Ear Pain (right. ). Negative for: Ear Discharge, Other (trauma. ) Respiratory: Negative for: Cough, Shortness of Breath Neurological: Negative for: Headache, Dizziness Physical Exam - Physical Exam Appears: Well, Non-toxic, No Acute Distress Skin: Normal Color, Warm, Dry Head: Atraumatic, Normacephalic Eye(s): bilateral: Normal Inspection, PERRL, EOMI Ear(s): Left: Normal, Right: Other ((+) tenderness with push of tragus and pull of oracle. (+) debris in external canal. normal TM. ) Nose: Normal, No Discharge Throat: Normal, No Erythema, No Exudate Neurological/Psych: Oriented x3, Normal Speech ED Course And Treatment O2 Sat by Pulse Oximetry: 97 (RA) Pulse Ox Interpretation: Normal Medical Decision Making Medical Decision Making: Progress: Patient stable for discharge home. Prescribed Neomycin-Polymyxin Hc ear susp. Disposition Counseled Patient/Family Regarding: Diagnosis, Need For Followup - Disposition Referrals: Radha Mcgee MD [Medical Doctor] - Disposition: HOME/ ROUTINE Disposition Time: 18:10 Condition: GOOD Prescriptions: Neomycin/Polymyxin B/Hydrocort [Sodlsoqm-Akjhbarcf-Om Ear Susp] 4 drop OT TID #10 ml Instructions: Outer Ear Infection (DC) Forms: [employer] (Kittitian) Print Language: MALTESE - Clinical Impression Clinical Impression: Otitis externa - Scribe Statement The provider has reviewed the documentation as recorded by the Scribe (Tatianna Mederos) Provider Attestation: All medical record entries made by the Scribe were at my direction and personally dictated by me. I have reviewed the chart and agree that the record accurately reflects my personal performance of the history, physical exam, medical decision making, and the department course for this patient. I have also personally directed, reviewed, and agree with the discharge instructions and disposition.
== END 2018-04-02 18:33 | disposition home or self-care (01) ==
LOC: C.ER 17:33
DX: H60.91 Unspecified otitis externa, right ear (principal)